=== PATIENT | female | born 1985 | race Caucasian/White ===

== ENCOUNTER 2020-06-08 09:14 | Emergency (ER) | payer OTHER ==
[~2020-06-08] VITALS: Ht 170.2 cm; Wt 90.7 kg
[2020-06-08 09:46] VITALS: BP 157/93
[2020-06-08 09:52] VITALS: BP 157/93
--- NOTE | 2020-06-08 10:36 | ER.PDOC ---
General Chief Complaint: Fever Stated Complaint: SOB,FEVER,CONGESTION,SORE THROAT Time seen by MD: 10:32 Source: patient Exam Limitations: no limitations History of Present Illness Initial Comments Fever, cough, runny nose, bodyaches, sore throat for 2 days. Patient got exposed to someone positive for COVID-19. Timing/Duration: gradual Severity: moderate Associated Symptoms: fever/chills, runny nose, sore throat, cough, mild SOB Allergies: Coded Allergies: Penicillins (Verified Allergy, Severe, Anaphylaxis Shock, 06/08/20) codeine (Verified Allergy, Severe, 06/08/20) Constitutional: see HPI EENTM: see HPI Respiratory: see HPI Cardiovascular: no symptoms reported Gastrointestinal: no symptoms reported All Other Systems: Reviewed and Negative Past Medical History Medical History: no pertinent history Surgical History: no surgical history Social History Alcohol Use: none Drug Use: none Physical Exam General Appearance: alert, no distress Eye: eyes nml inspection Nose: nose nml Throat: pharynx nml, airway nml Neck: nml inspection, supple Respiratory: no resp.distress, breath sounds nml Abdomen: non-tender, no organomegaly CVS: reg rate & rhythm, heart sounds nml Skin: color nml, no rash, warm/dry Extremities: non-tender, nml ROM, no pedal edema NEURO/PSYCH: oriented x 3, CN's nml as tested, motor nml, sensation nml, mood/affect nml Results/Orders Results/Orders Orders - OMAR MEREDITH MD Strep Screen (06/08/20 09:36) Influenza A&B (06/08/20 09:36) Covid19 Antigen Fatimah Castelan (06/08/20 09:36) Vital Signs Date Time Temp Pulse Resp B/P (MAP) Pulse Ox O2 Delivery O2 Flow Rate FiO2 06/08/20 09:52 97.9 75 18 06/08/20 09:52 97.9 75 18 157/93 (114) 98 Room Air 06/08/20 09:46 97.9 75 18 98 Laboratory Tests Test 06/08/20 09:40 Influenza Type A Antigen NEGATIVE (NEG) Influenza B Immunofluorescence NEGATIVE (NEG) SARS-CoV-2 Antigen (Rapid) NEGATIVE (NEGATIVE) Group A Streptococcus Screen NEGATIVE (NEGATIVE) ER DEPART Departure Time of Disposition: 10:34 Disposition: 01 HOME, SELF-CARE Impression: Primary Impression: Acute upper respiratory infection Additional Impression: COVID-19 ruled out Condition: Stable Referrals: PCP,UNKNOWN (PCP) PRIMARY CARE PROVIDER Additional Instructions: Tylenol Mucinex DM OTC as directed Self quarantine at home until you are notified with your COVID-19 results F/U with your PCP in 1 week Return to ED if worsening or concerns Duration or Time Spent with Pa: 20 min Problem Qualifiers OMAR MEREDITH MD Jun 08, 2020 10:36
== END 2020-06-08 10:49 | disposition home or self-care (01) ==
LOC: ER 09:14
DX: J06.9 Acute upper respiratory infection, unspecified (principal); M79.10 Myalgia, unspecified site; Z20.828 Contact with and (suspected) exposure to other viral communicable diseases; Z88.0 Allergy status to penicillin; Z88.5 Allergy status to narcotic agent
CPT/HCPCS: 87070; 87426; 87635; 87804; 87880; 99283

== ENCOUNTER 2020-09-16 16:06 | Emergency (ER) | payer MEDICAID, OTHER ==
[~2020-09-16] VITALS: Ht 170.2 cm; Wt 95.3 kg
[2020-09-16 16:25] VITALS: BP 123/71
[2020-09-16 16:28] VITALS: BP 123/71
--- NOTE | 2020-09-16 16:29 | NUR ---
ARRIVAL PATIENT ARRIVED TO [facility]BULAT[facility], C/O OF NAUSEA,VOMITING,AND DIRRHEA SINCE APPROX 0300 THIS MORNING, PATIENT STATES AFTER WORK LAST NIGHT SHE STOPPED AT [employer] AND GOT SOME FOOD, WHEN SHE WOKE UP THIS MORNING SHE HAS NAUSEA,VOMITING, AND DIARRHEA, ATTEMPTED TO TREAT HERSELF AT HOME BUT WAS UNABLE TO KEEP ANYTHING DOWN, DECIDED TO COME TO THE ED FOR EVAL. DOCTOR ALBERTO NOTIFIED OF PATIENT'S ARRIVAL.
[2020-09-16] MEDS ORDERED: ZOFRAN ONE ×2 (16:31→17:08)
[2020-09-16] MEDS ORDERED: NS 1000ML 1,000 ML ONE (16:31)
[2020-09-16] MEDS: ZOFRAN IV STA (17:03)
[2020-09-16] MEDS: NS 1000ML 1,000 ML IV ONE (17:03)
--- NOTE | 2020-09-16 17:07 | ER.PDOC ---
General Chief Complaint: Nausea,Vomiting,Diarrhea Stated Complaint: N/V/D Time seen by MD: 16:50 Source: patient Exam Limitations: no limitations History of Present Illness Initial Comments This is a 35-year-old female who was awakened from sleep at 3 in the morning by the onset of nausea vomiting and subsequently watery diarrhea. Throughout the day she has had multiple episodes of vomiting and diarrhea. There has been no hematemesis and no hematochezia.She has occasional mild generalized abdominal cramping. There is been no fever or chills. She and her significant other ate [employer] about 4 hours earlier but the significant other is asymptomatic.Been no recent exposure to ill individuals that she knows.She denies a history of fr equent recurrent similar symptoms. Severity/Quality: moderate, cramping Abdominal Pain Onset Location: Generalized Abdomen Associated Symptoms (vomiting): freq vomitng Associated Symptoms (diarrhea): watery Allergies: Coded Allergies: Penicillins (Verified Allergy, Severe, Anaphylaxis Shock, 06/08/20) codeine (Verified Allergy, Severe, 06/08/20) Vital Signs First Vital Signs Date Time Temp Pulse Resp B/P (MAP) Pulse Ox O2 Delivery O2 Flow Rate FiO2 09/16/20 16:25 98.7 115 20 09/16/20 16:25 123/71 (88) 98 Room Air Last Vital Signs Date Time Temp Pulse Resp B/P (MAP) Pulse Ox O2 Delivery O2 Flow Rate FiO2 09/16/20 18:07 98.7 92 20 149/94 (112) 98 Room Air Past Medical History Medical History: high cholesterol, other (Dysmenorrhea) Surgical History: no surgical history Social History Smoking: non-smoker Alcohol Use: none Drug Use: none Constitutional: denies chills, denies fever EENTM: denies blurred vision, denies double vision Respiratory: denies cough, denies shortness of breath Cardiovascular: denies chest pain, denies syncope Gastrointestinal: diarrhea, vomiting Genitourinary: denies dysuria, denies hematuria Musculoskeletal: denies back pain, denies joint pain Skin: denies lesions, denies rash Psychiatric/Neurological: anxiety Endocrine: denies increased thrist, denies increased urine Hematologic/Lymphatic: denies easy bleeding, denies easy bruising Physical Exam General Appearance: No Apparent Distress HEENT: PERRL/EOMI, Normal ENT Inspection, Pharynx Normal Neck: Non-Tender, Full Range of Motion Respiratory: lungs clear, normal breath sounds Cardiovascular: Normal Peripheral Pulses, Regular Rate, Rhythm, No Edema, No JVD, No Murmur Gastrointestinal: Normal Bowel Sounds, Non Tender Back: Normal Inspection Extremities: Normal Range of Motion, Non-Tender Neurologic/Psychiatric: product examiner II-XII NML as Tested, No Motor/Sensory Deficits, Alert, Normal Mood/Affect, Oriented x 3 Skin: Normal Color, Warm/Dry Lymphatic: No Adenopathy Results/Orders Results/Orders Orders - DONYA DOMINGUEZ MD 0.9 % Sodium Chloride (Ns 1000ml) (09/16/20 16:31) Ondansetron Hcl/Pf (Zofran) (09/16/20 16:31) 0.9 % Sodium Chloride (Ns 1000ml) (09/16/20 17:00) Ondansetron Hcl/Pf (Zofran) (09/16/20 16:59) Cbc With Auto Diff (09/16/20 16:59) Comprehensive Metabolic Panel (09/16/20 16:59) Ondansetron Hcl/Pf (Zofran) (09/16/20 17:08) Promethazine Hcl (Phenergan) (09/16/20 17:26) Promethazine Hcl (Phenergan) (09/16/20 17:29) Vital Signs Date Time Temp Pulse Resp B/P (MAP) Pulse Ox O2 Delivery O2 Flow Rate FiO2 09/16/20 18:07 98.7 92 20 149/94 (112) 98 Room Air 09/16/20 16:28 98.7 115 20 123/71 (88) 98 Room Air 09/16/20 16:25 98.7 115 20 98 09/16/20 16:25 98.7 115 20 123/71 (88) 98 Room Air 09/16/20 16:25 98.7 115 20 Administered Medications Medications (Trade) Dose Ordered Sig/Joseluis Route PRN Reason Start Time Stop Time Status Last Admin Dose Admin Ondansetron HCl (Zofran) 8 mg OT STAT IV 09/16/20 16:59 09/16/20 17:02 DC 09/16/20 17:03 8 MG Promethazine HCl (Phenergan) 25 mg OT STAT IV 09/16/20 17:26 09/16/20 17:27 DC 09/16/20 17:30 25 MG Sodium Chloride 1,000 ml @ 1,000 mls/hr Q1H ONCE IV 09/16/20 17:00 09/16/20 17:59 DC 09/16/20 17:03 1,000 MLS/HR Laboratory Tests Test 09/16/20 17:08 White Blood Count 9.7 10^3/uL (4.5-11.0) Red Blood Count 4.53 10^6/uL (4.00-5.20) Hemoglobin 13.8 g/dL (12.0-15.0) Hematocrit 41.4 % (36.0-46.0) Mean Corpuscular Volume 91.4 fL (78-100) Mean Corpuscular Hemoglobin 30.5 pg (26-34) Mean Corpuscular Hemoglobin Concent 33.3 g/dL (33-36.5) Red Cell Distribution Width 13.6 % (11.5-14.5) Platelet Count 258 10^3/uL (150-400) Mean Platelet Volume 9.1 fL (7.8-11.0) Neutrophils (%) (Auto) 88.9 % (41.0-85.0) H Lymphocytes (%) (Auto) 5.1 % (24.0-44.0) *L Monocytes (%) (Auto) 5.3 % (5.0-12.0) Neutrophils # (Auto) 8.6 10^3/uL (1.8-7.7) H Lymphocytes # (Auto) 0.50 10^3/uL1 (1.0-4.8) L Monocytes # (Auto) 0.5 10^3/uL (0.3-0.8) Absolute Immature Granulocyte (auto 0.02 10^3 u/L (0-2) Absolute Eosinophils (auto) 0.0 10^3/uL (0.0-0.2) Immature Granulocytes % 0.20 % (0.00-0.50) Eosinophils % 0.4 % (0.0-5.0) Basophils % 0.1 % (0.0-0.2) Basophils # 0.0 10^3/uL (0.0-0.1) Sodium Level 141 mmol/L (132-145) Potassium Level 3.6 mmol/L (3.6-5.2) Chloride Level 106.0 mmol/L (96-109) Carbon Dioxide Level 22.9 mmol/L (20.0-32) Anion Gap 15.7 Blood Urea Nitrogen 21 mg/dL (7-18) H Creatinine 0.76 mg/dL (0.59-1.40) Estimated GFR () 106.1 (>/=60) Est GFR (CKD-EPI)(Non-Afr Norwegian) 87.6 (>/=60) BUN/Creatinine Ratio 27.0 Glucose Level 101 mg/dL (70-110) Calcium Level 8.1 mg/dL (8.4-10.5) L Total Bilirubin 0.8 mg/dL (0.2-1.0) Aspartate Amino Transferase (AST) 11 U/L (0-35) Alanine Aminotransferase (ALT) 23 U/L (12-78) Alkaline Phosphatase 78 U/L (50-136) Total Protein 6.6 g/dL (6.4-8.2) Albumin 3.5 g/dL (3.4-5.0) Globulin 3.1 Albumin/Globulin Ratio 1.129 Progress Progress Patient is a little bit sleepy post Phenergan but appears comfortable. She has had no episodes of vomiting or diarrhea in approximately 2 hours in the emergency room. ER DEPART Departure Time of Disposition: 18:13 Disposition: 01 HOME, SELF-CARE Impression: Primary Impression: Acute gastroenteritis Condition: Stable Patient Instructions: Diarrhea, Nausea and Vomiting Referrals: PCP,UNKNOWN (PCP) PRIMARY CARE PROVIDER Duration or Time Spent with Pa: 10 Return to Work/School Can a patient return to work?: No (Return to work 09/20) DONYA DOMINGUEZ MD Sep 16, 2020 17:07
[2020-09-16 17:15] LABS: BASOPHIL % 0.1 % (0.0-0.2); EOSINOPHIL % 0.4 % (0.0-5.0); LYMPHOCYTES % 5.1 % (24.0-44.0); MEAN CORP HGB 30.5 pg (26-34); MONOCYTES # 0.5 10^3/uL (0.3-0.8); MONOCYTES % 5.3 % (5.0-12.0); NEUTROPHIL # 8.6 10^3/uL (1.8-7.7); NEUTROPHILS % 88.9 % (41.0-85.0); PLATELET COUNT 258 10^3/uL (150-400); RED CELL DISTRIBUTION WIDTH 13.6 % (11.5-14.5)
[2020-09-16] MEDS ORDERED: PHENERGAN ONE (17:29)
[2020-09-16] MEDS: PHENERGAN IV STA (17:30)
[2020-09-16 17:41] LABS: CALCIUM 8.1 mg/dL (8.4-10.5); CARBON DIOXIDE 22.9 mmol/L (20.0-32)
[2020-09-16 18:07] VITALS: BP 149/94
[2020-09-16 19:53] LABS: DIFFERENTIAL COMMENT NORMAL; LYMPHOCYTE 5 % (25-36); MONOCYTE 5 % (3-9); SEGMENTED NEUTROPHILS 90 % (31-76)
== END 2020-09-16 18:08 | disposition home or self-care (01) ==
LOC: ER 16:19
DX: K52.9 Noninfective gastroenteritis and colitis, unspecified (principal); E78.00 Pure hypercholesterolemia, unspecified; Z79.899 Other long term (current) drug therapy; Z88.0 Allergy status to penicillin; Z88.5 Allergy status to narcotic agent
CPT/HCPCS: 36415; 80053; 85025; 96361; 96374; 96375; 99284; J2405 ×2; J2550; J7030